=== PATIENT | male | born 1965 | race Caucasian/White ===

== ENCOUNTER 2017-03-30 20:17 | Emergency (ER) | payer OTHER ==
[2017-03-30 20:26] VITALS: BP 168/85; PULSE 61; RESP 16; TEMP 97.1
--- NOTE | 2017-03-30 20:49 | ED ---
General Adult HPI - General Chief complaint: Head Injury Stated complaint: Head Lac Time Seen by Provider: 03/30/17 20:48 Source: patient, family, RN notes reviewed Mode of arrival: ambulatory Limitations: no limitations - History of Present Illness Initial comments: Patient's a 52-year-old male who presents emergency room today with a chief complaint of laceration top of his head. He doesn't that he was using a pry bar above his head did give way and hit the side causing laceration. Patient states tetanus is up-to-date. Patient denies any loss consciousness. He denies any other complaints associated symptoms. Patient denies any recent fever , chills, shortness of breath, chest pain, back pain, abdominal pain, nausea or vomiting, numbness or tingling, dysuria or hematuria, constipation or diarrhea, headaches or visual changes, or any other complaints. - Related Data Allergies Allergy/AdvReac Type Severity Reaction Status Date / Time No Known Allergies Allergy Verified 03/30/17 20:23 Review of Systems ROS Statement: Those systems with pertinent positive or pertinent negative responses have been documented in the HPI. ROS Other: All systems not noted in ROS Statement are negative. Past Medical History Past Medical History: No Reported History History of Any Multi-Drug Resistant Organisms: None Reported Past Surgical History: No Surgical Hx Reported Past Psychological History: No Psychological Hx Reported Smoking Status: Never smoker Past Alcohol Use History: None Reported Past Drug Use History: None Reported General Exam - General Exam Comments Initial Comments: General: The patient is awake and alert, in no distress, and does not appear acutely ill. Eye: Pupils are equal, round and reactive to light, extra-ocular movements are intact. No nystagmus. There is normal conjunctiva bilaterally. No signs of icterus. Ears, nose, mouth and throat: There are moist mucous membranes and no oral lesions. Neck: The neck is supple, there is no tenderness or JVD. Cardiovascular: There is a regular rate and rhythm. No murmur, rub or gallop is appreciated. Respiratory: Lungs are clear to auscultation, respirations are non-labored, breath sounds are equal. No wheezes, stridor, rales, or rhonchi. Musculoskeletal: Normal ROM, no tenderness. Strength 5/5. Sensation intact. Pulses equal bilaterally 2+. Neurological: A&O x 3. CN II-XII intact, There are no obvious motor or sensory deficits. Coordination appears grossly intact. Speech is normal. Skin: Patient does have a 1 cm linear laceration to the left side top of his head. No active bleeding. Psychiatric: Cooperative, appropriate mood & affect, normal judgment. Limitations: no limitations Course Vital Signs 03/30/17 20:23 Temperature 97.1 F L Pulse Rate 61 Respiratory 16 Rate Blood Pressure 168/85 O2 Sat by Pulse 98 Oximetry Procedures - Procedures Initial comment: 1 cm linear laceration to the left side topical side. The laceration was then cleansed with Betadine and irrigated with normal saline. The wound was inspected , and there was no evidence of injury to deep structures. No foreign body was noted in the wound. A total of 2 skin kristen were placed with good approximation. Disposition Clinical Impression: Scalp laceration Disposition: HOME SELF-CARE Condition: Good Instructions: Concussion (ED) Additional Instructions: Please return to emergency room in 10 days to have sutures removed. Please return for any other concerns as discussed. Referrals: None,Stated [Primary Care Provider] - 1-2 days Time of Disposition: 20:49
== END 2017-03-30 21:12 | disposition home or self-care (01) ==
LOC: EC 20:17
DX: S01.01XA Laceration without foreign body of scalp, initial encounter (principal); W22.8XXA Striking against or struck by other objects, initial encounter; Y93.89 Activity, other specified
CPT/HCPCS: 12001; 99283

== ENCOUNTER 2017-10-26 18:46 | Observation (INO) | payer OTHER ==
[2017-10-26] MEDS ORDERED: RX INFO: IV CONTRAST WAS GIVEN 1 EACH MISC MISCELLANE PRN (19:44)
[2017-10-26 19:52] LABS: Appearance,Urine Clear (Clear); Bilirubin,Urine Negative (Negative); Blood,Urine Negative (Negative); Color,Urine Light Yellow; Glucose,Urine (UA) Negative (Negative); Ketones,Urine 2+ (Negative); Leukocyte Esterase,Urine Negative (Negative); Nitrite,Urine Negative (Negative); PH, Urine 6.5 (5.0-8.0); Protein,Urine Negative (Negative); Specific Gravity,Urine 1.014 (1.001-1.035); Urobilinogen,Urine <2.0 mg/dL (<2.0)
--- NOTE | 2017-10-26 19:52 | ED ---
Abdominal Pain HPI - General Source: patient, RN notes reviewed Mode of arrival: ambulatory Limitations: no limitations <Joyce Ashford - Last Filed: 10/26/17 21:36> <Pratik Segura - Last Filed: 10/31/17 10:25> - General Chief Complaint: Abdominal Pain Stated Complaint: abd pain Time Seen by Provider: 10/26/17 19:22 - History of Present Illness Initial Comments: This is a 52-year-old male who presents to the emergency department with chief complaint of abdominal pain. Patient is a poor historian and is unable to completely describe his abdominal pain. He states that it started 24 hours ago. He states that the pain feels like "when you are really hungry" and that his stomach is twisted in a knot. He states that the pain subsides mildly after he has a bowel movement or urinates. When asked to point to the location of pain, he points superior to umbilicus. He denies nausea or vomiting, diarrhea or constipation. He does admit to associated chills. He states that he started a new diet on September 18 that consists of high uric acid and high protein. He has been eating lean meat, turkey burgers, spinach and broccoli. He states he has had 2-3 episodes of this abdominal pain since starting the new diet but that they have only lasted for about one hour. Currently rates his pain as 8/10. (Joyce Ashford) - Related Data Home Medications Medication Instructions Recorded Confirmed Naproxen Sodium [Aleve] 440 mg PO BID PRN 10/26/17 10/26/17 Previous Rx's Medication Instructions Recorded Acetaminophen Tab [Tylenol] 650 mg PO Q6HR PRN tab 10/29/17 Docusate [Colace] 100 mg PO BID cap 10/29/17 HYDROcodone/APAP 5-325MG [[place] 1 each PO Q3H PRN #15 tab 10/29/17 5-325] Levofloxacin [Levaquin] 500 mg PO DAILY #7 tab 10/29/17 Allergies Allergy/AdvReac Type Severity Reaction Status Date / Time egg Allergy Anaphylaxis Verified 10/26/17 19:51 Review of Systems ROS Other: All systems not noted in ROS Statement are negative. <Joyce Ashford - Last Filed: 10/26/17 21:36> ROS Other: All systems not noted in ROS Statement are negative. <Pratik Segura - Last Filed: 10/31/17 10:25> ROS Statement: Those systems with pertinent positive or pertinent negative responses have been documented in the HPI. Past Medical History Past Medical History: No Reported History History of Any Multi-Drug Resistant Organisms: None Reported Past Surgical History: No Surgical Hx Reported Past Psychological History: No Psychological Hx Reported Smoking Status: Never smoker Past Alcohol Use History: None Reported Past Drug Use History: None Reported <Joyce Ashford - Last Filed: 10/26/17 21:36> - Past Family History Father Family Medical History: No Reported History Mother Family Medical History: No Reported History <Pratik Segura - Last Filed: 10/31/17 10:25> General Exam Limitations: no limitations <MakedaSahilJoyce Jose - Last Filed: 10/26/17 21:36> <Pratik Segura - Last Filed: 10/31/17 10:25> - General Exam Comments Initial Comments: General: Awake and alert, well-developed; in no apparent distress. is at bedside. HEENT: Head atraumatic, normocephalic. Pupils are equal, round and reactive to light. Extraocular movements intact. Oropharynx moist without erythema or exudate. Neck: Supple. Normal ROM. Cardiovascular: Regular rate and rhythm. No murmurs, rubs or gallops. Chest symmetrical. Respiratory: Lungs clear to auscultation bilaterally. No wheezes, rales or rhonchi. Normal respiratory effort with no use of accessory muscles. Abdomen: Soft, non-distended. Generalized tenderness on palpation of all 4 quadrants. No rigidity, rebound or guarding. Normal bowel sounds in all 4 quadrants. Musculoskeletal: Normal ROM, no tenderness bilateral upper and lower extremities. Skin: [place], warm and dry without rashes or lesions. Neurological: Alert and oriented x3. CN II-XII grossly intact. Speech is fluent and answers are appropriate. No focal neuro deficits. Psychiatric: Normal mood and affect. No overt signs of depression or anxiety noted. Poor historian. (Joyce Ashford) Vital Signs 10/26/17 10/26/17 19:00 22:22 Temperature 98.9 F 100.3 F H Pulse Rate 72 89 Respiratory 18 16 Rate Blood Pressure 158/80 133/70 O2 Sat by Pulse 99 Oximetry Medical Decision Making - Lab Data Result diagrams: 10/26/17 20:00 10/26/17 20:00 <Joyce Ashford - Last Filed: 10/26/17 21:36> - Lab Data Result diagrams: 10/28/17 06:35 10/26/17 20:00 <Pratik Segura - Last Filed: 10/31/17 10:25> - Medical Decision Making 52-year-old male who presents to the emergency department chief complaint of generalized abdominal pain. Patient did have a white count 13.2 with a left shift at 11.2. I received a phone call from Dr. Rivas, radiologist with diagnosis of acute appendicitis. I discussed this case with attending physician , Dr. Segura who was in contact with Dr. Vinson. Patient will be admitted to him. He will be made clear liquids with nothing by mouth diet after midnight. Pain medication and broad-spectrum antibiotics. Patient was made aware of findings and plan. He is in agreement for admission. All questions answered. (Joyce Ashford) I saw this patient in conjunction with the physician assistant plant control operator. I performed independent history and physical exam. Agree with case management. Case discussed with Dr. Vinson, who will admit. (Pratik Segura) - Lab Data Lab Results 10/26/17 10/26/17 10/26/17 Range/Units 19:41 20:00 20:00 WBC 13.2 H (3.8-10.6) k/uL RBC 4.75 (4.30-5.90) m/uL Hgb 14.2 (13.0-17.5) gm/dL Hct 42.1 (39.0-53.0) % MCV 88.6 (80.0-100.0) fL MCH 29.9 (25.0-35.0) pg MCHC 33.7 (31.0-37.0) g/dL RDW 12.6 (11.5-15.5) % Plt Count 155 (150-450) k/uL Neutrophils % 85 % Lymphocytes % 8 % Monocytes % 6 % Eosinophils % 1 % Basophils % 0 % Neutrophils # 11.2 H (1.3-7.7) k/uL Lymphocytes # 1.0 (1.0-4.8) k/uL Monocytes # 0.8 (0-1.0) k/uL Eosinophils # 0.1 (0-0.7) k/uL Basophils # 0.0 (0-0.2) k/uL Sodium 142 (137-145) mmol/L Potassium 4.1 (3.5-5.1) mmol/L Chloride 103 (98-107) mmol/L Carbon Dioxide 25 (22-30) mmol/L Anion Gap 14 mmol/L BUN 16 (9-20) mg/dL Creatinine 0.88 (0.66-1.25) mg/dL Est GFR (CKD-EPI)AfAm >90 (>60 ml/min/1.73 sqM) Est GFR (CKD-EPI)NonAf >90 (>60 ml/min/1.73 sqM) Glucose 81 (74-99) mg/dL Calcium 9.8 (8.4-10.2) mg/dL Total Bilirubin 0.8 (0.2-1.3) mg/dL AST 25 (17-59) U/L ALT 26 (21-72) U/L Alkaline Phosphatase 94 (38-126) U/L Total Protein 7.5 (6.3-8.2) g/dL Albumin 4.5 (3.5-5.0) g/dL Amylase 62 (30-110) U/L Lipase 105 (23-300) U/L Urine Color Light Yellow Urine Appearance Clear (Clear) Urine pH 6.5 (5.0-8.0) Ur Specific [place] 1.014 (1.001-1.035) Urine Protein Negative (Negative) Urine Glucose (UA) Negative (Negative) Urine Ketones 2+ H (Negative) Urine Blood Negative (Negative) Urine Nitrite Negative (Negative) Urine Bilirubin Negative (Negative) Urine Urobilinogen <2.0 (<2.0) mg/dL Ur Leukocyte Esterase Negative (Negative) Disposition Is patient prescribed a controlled substance at d/c from ED?: No Time of Disposition: 21:37 <Joyce Ashford - Last Filed: 10/26/17 21:36> <Pratik Segura - Last Filed: 10/31/17 10:25> Clinical Impression: Acute appendicitis Disposition: ADMITTED IP TO THIS HOSP Condition: Stable Addendum entered and electronically signed by Joyce Ashford PA-C 10/26/17 21: 38: Report was reviewed: CT abdomen and pelvis without contrast impression: Findings compatible with acute appendicitis without perforation or abscess formation at this time.
[2017-10-26 20:14] LABS: Basophils % (A) 0 %; Eosinophils # (A) 0.1 k/uL (0-0.7); Eosinophils % (A) 1 %; HCT 42.1 % (39.0-53.0); HGB 14.2 gm/dL (13.0-17.5); Lymphocytes % (A) 8 %; MCH 29.9 pg (25.0-35.0); MCHC 33.7 g/dL (31.0-37.0); MCV 88.6 fL (80.0-100.0); Mean Platelet Volume 8.6; Monocytes # (A) 0.8 k/uL (0-1.0); Monocytes % (A) 6 %; Neutrophils # (A) 11.2 k/uL (1.3-7.7); Neutrophils % (A) 85 %; Platelet Count 155 k/uL (150-450); RBC 4.75 m/uL (4.30-5.90); RDW 12.6 % (11.5-15.5); WBC 13.2 k/uL (3.8-10.6)
[2017-10-26 20:26] LABS: ALT 26 U/L (21-72); AST 25 U/L (17-59); Albumin 4.5 g/dL (3.5-5.0); Alkaline Phosphatase 94 U/L (38-126); Amylase 62 U/L (30-110); Anion Gap 14 mmol/L; Blood Urea Nitrogen 16 mg/dL (9-20); Calcium 9.8 mg/dL (8.4-10.2); Carbon Dioxide 25 mmol/L (22-30); Chloride 103 mmol/L (98-107); Glucose 81 mg/dL (74-99); Lipase 105 U/L (23-300); Potassium 4.1 mmol/L (3.5-5.1); Sodium 142 mmol/L (137-145); Total Bilirubin 0.8 mg/dL (0.2-1.3); Total Protein 7.5 g/dL (6.3-8.2)
--- NOTE | 2017-10-26 21:21 | CT ---
EXAMINATION TYPE: CT abdomen pelvis w con DATE OF EXAM: 10/26/2017 COMPARISON: NONE HISTORY: abdominal pain CT DLP: 1101 mGycm CONTRAST: CT scan of the abdomen and pelvis is performed without Oral Contrast and with IV Contrast, patient in jected with 100 mL of Isovue 300. FINDINGS: LUNG BASES-: No visible nodule. No infiltrate. LIVER/GB: No calcified gallstones. No space occupying hepatic lesion. Biliary tree is of normal ca liber. Small hepatic cysts noted. PANCREAS: No inflammation. No distinct mass. SPLEEN: No splenic enlargement. No lesion seen. ADRENALS: No nodule. No thickening. KIDNEYS/BLADDER: No hydronephrosis. No nephrolithiasis. Left renal simple appearing cysts. Urinary bladder grossly unremarkable. BOWEL: Dilatation of the appendix measuring up to 11 mm with surrounding inflammatory change and appe ndicolith. The findings are compatible with acute appendicitis without perforation or abscess no evid ence for free air. At this time. Normal bowel caliber. GENITAL ORGANS: No gross abnormality. LYMPH NODES: No greater than 1cm abdominal or pelvic lymph nodes are appreciated. AORTA: No significant abnormality. OSSEOUS STRUCTURES: No significant abnormality is seen. OTHER: No significant additional abnormality is seen. IMPRESSION: 1. Findings compatible with acute appendicitis without perforation or abscess formation at this time.
[2017-10-26] MEDS ORDERED: MORPHINE SULFATE 4MG/4ML SYRG IV PRN (21:31)
[2017-10-26] MEDS ORDERED: ONDANSETRON 4 MG/2 ML VIAL IVP PRN (21:31)
[2017-10-26] MEDS ORDERED: HYDROcodone/APAP 5-325MG 1 EACH TAB PO PRN (21:31)
[2017-10-26] MEDS ORDERED: MORPHINE SULFATE 4MG/4ML SYRG IV STA (21:31)
[2017-10-26] MEDS ORDERED: NALOXONE 0.4 MG/ML 1 ML VIAL IV PRN (21:31)
[2017-10-26] MEDS ORDERED: ACETAMINOPHEN TAB 325 MG TAB PO PRN (21:31)
[2017-10-26] MEDS: SODIUM CHLORIDE 0.9% 1,000 ML IV SCH (21:54)
[2017-10-26] MEDS ORDERED: HYDROcodone/APAP 5-325MG 1 EACH TAB ONE (23:30)
[2017-10-27] MEDS: PIPERACILLIN-TAZOBACTAM 3.375 GM in DEXTROSE/WATER 1 50ML.BAG IVPB SCH ×4 (08:30→23:36)
[2017-10-27] MEDS: SODIUM CHLORIDE 0.9% 1,000 ML IV SCH ×4 (09:01→18:07)
[2017-10-27] MEDS ORDERED: ACETAMINOPHEN IV (For NPO) 1,000 MG in EMPTY BAG 1 BAG IVPB ONE (09:14)
--- NOTE | 2017-10-27 09:25 | P.GSHP ---
<Kristen Rogel M - Last Filed: 10/27/17 09:16> History of Present Illness H&P Date: 10/27/17 Chief Complaint: Abdominal pain A 52-year-old presented to the emergency room with a chief complaint of developing right mid quadrant abdominal pains. Patient stated the symptoms started 24 hours prior. They continue to persist. Patient's points to the right mid upper quadrant abdominal region as to the reference point. Patient states if you push on it it hurts. He stated that if he had a bowel movement the pain was less. with movement the pain increased. Patient stated that he did feel like he had chills. Patient came into the emergency room to be seen for the above-mentioned symptoms. The white count on admission was 13.2. CAT scan of the abdomen pelvis compatible with acute appendicitis. Patient was admitted to the services of the attending. The temp this morning is 101 heart rate in the 90s labs are pending abdominal pain continues to persist No past surgical history No past medical history states have lower back discomfort uses [id number] Aleve does not take daily - Review of Systems Comment: Essentially unremarkable except as mentioned in the present illness Past Medical History Past Medical History: No Reported History History of Any Multi-Drug Resistant Organisms: None Reported Past Surgical History: No Surgical Hx Reported Past Psychological History: No Psychological Hx Reported Smoking Status: Never smoker Past Alcohol Use History: None Reported Past Drug Use History: None Reported Medications and Allergies Home Medications Medication Instructions Recorded Confirmed Type Naproxen Sodium [Aleve] 440 mg PO BID PRN 10/26/17 10/26/17 History Allergies Allergy/AdvReac Type Severity Reaction Status Date / Time egg Allergy Anaphylaxis Verified 10/26/17 19:51 Surgical - Exam Vital Signs Temp Pulse Resp BP Pulse Ox 98.9 F 72 18 158/80 99 10/26/17 19:00 10/26/17 19:00 10/26/17 19:00 10/26/17 19:00 10/26/17 19:00 GENERAL APPEARANCE: 52-year-old patient is alert, face flushed resting in bed VITAL SIGNS: Reviewed HEENT: Head is normocephalic and atraumatic. Pupils are equal and reactive. The nares are patent. Oropharynx is clear without lesions. NECK: Supple without lymphadenopathy. Traches midline. HEART: S1, S2. Regular rate and rhythm. Denying chest pain no murmur LUNGS: No crackles or wheezes are heard. Adequate air movement bilaterally ABDOMEN: Soft, mild tenderness right lower quadrant nondistended with good bowel sounds. No peritoneal signs. No palpable organomegaly or masses. Nondistended bowel tones present no nausea no vomiting urinating no difficulty no stool EXTREMITIES: Normal skin color and turgor. No cyanosis, rash, ulceration, clubbing or edema. Radial pedal pulses are 2/4 bilaterally. NEUROLOGICAL: No focal deficits. Strength and sensation are grossly intact. Results - Labs 10/26/17 20:00 10/26/17 20:00 Abnormal Lab Results - Last 24 Hours (Table) 10/26/17 10/26/17 Range/Units 19:41 20:00 WBC 13.2 H (3.8-10.6) k/uL Neutrophils # 11.2 H (1.3-7.7) k/uL Urine Ketones 2+ H (Negative) Microbiology - Last 24 Hours (Table) 10/26/17 19:41 Urine Culture - Preliminary Urine,Voided Diabetes panel 10/26/17 Range/Units 20:00 Sodium 142 (137-145) mmol/L Potassium 4.1 (3.5-5.1) mmol/L Chloride 103 (98-107) mmol/L Carbon Dioxide 25 (22-30) mmol/L BUN 16 (9-20) mg/dL Creatinine 0.88 (0.66-1.25) mg/dL Glucose 81 (74-99) mg/dL Calcium 9.8 (8.4-10.2) mg/dL AST 25 (17-59) U/L ALT 26 (21-72) U/L Alkaline Phosphatase 94 (38-126) U/L Total Protein 7.5 (6.3-8.2) g/dL Albumin 4.5 (3.5-5.0) g/dL Calcium panel 10/26/17 Range/Units 20:00 Calcium 9.8 (8.4-10.2) mg/dL Albumin 4.5 (3.5-5.0) g/dL Pituitary panel 10/26/17 Range/Units 20:00 Sodium 142 (137-145) mmol/L Potassium 4.1 (3.5-5.1) mmol/L Chloride 103 (98-107) mmol/L Carbon Dioxide 25 (22-30) mmol/L BUN 16 (9-20) mg/dL Creatinine 0.88 (0.66-1.25) mg/dL Glucose 81 (74-99) mg/dL Calcium 9.8 (8.4-10.2) mg/dL Adrenal panel 10/26/17 Range/Units 20:00 Sodium 142 (137-145) mmol/L Potassium 4.1 (3.5-5.1) mmol/L Chloride 103 (98-107) mmol/L Carbon Dioxide 25 (22-30) mmol/L BUN 16 (9-20) mg/dL Creatinine 0.88 (0.66-1.25) mg/dL Glucose 81 (74-99) mg/dL Calcium 9.8 (8.4-10.2) mg/dL Total Bilirubin 0.8 (0.2-1.3) mg/dL AST 25 (17-59) U/L ALT 26 (21-72) U/L Alkaline Phosphatase 94 (38-126) U/L Total Protein 7.5 (6.3-8.2) g/dL Albumin 4.5 (3.5-5.0) g/dL Assessment and Plan Assessment: Impression Present on admission right upper quadrant abdominal pain suspect due to acute appendicitis CAT scan abdomen and pelvis compatible with acute appendicitis Leukocytosis present on admission likely reactive Febrile likely due to acute appendicitis Sinus tachycardia likely due to acute appendicitis reactive pain Plan IV Zosyn as ordered Pain control Nothing by mouth for planned surgical procedure laparoscopic appendectomy today DVT and GI prophylaxis Plan of care discussed with and patient at bedside questions answered 1 dose of IV Tylenol now The above impression and plan of care have been discussed and directed by signing physician. Kristen Rogel nurse practitioner acting as scribe for signing physician. <Tolu Vinson - Last Filed: 10/27/17 13:48> Surgical - Exam Vital Signs Temp Pulse Resp BP Pulse Ox 98.9 F 72 18 158/80 99 10/26/17 19:00 10/26/17 19:00 10/26/17 19:00 10/26/17 19:00 10/26/17 19:00 Results - Labs 10/26/17 20:00 10/26/17 20:00 Abnormal Lab Results - Last 24 Hours (Table) 10/26/17 10/26/17 Range/Units 19:41 20:00 WBC 13.2 H (3.8-10.6) k/uL Neutrophils # 11.2 H (1.3-7.7) k/uL Urine Ketones 2+ H (Negative) Microbiology - Last 24 Hours (Table) 10/26/17 19:41 Urine Culture - Preliminary Urine,Voided Diabetes panel 10/26/17 Range/Units 20:00 Sodium 142 (137-145) mmol/L Potassium 4.1 (3.5-5.1) mmol/L Chloride 103 (98-107) mmol/L Carbon Dioxide 25 (22-30) mmol/L BUN 16 (9-20) mg/dL Creatinine 0.88 (0.66-1.25) mg/dL Glucose 81 (74-99) mg/dL Calcium 9.8 (8.4-10.2) mg/dL AST 25 (17-59) U/L ALT 26 (21-72) U/L Alkaline Phosphatase 94 (38-126) U/L Total Protein 7.5 (6.3-8.2) g/dL Albumin 4.5 (3.5-5.0) g/dL Calcium panel 10/26/17 Range/Units 20:00 Calcium 9.8 (8.4-10.2) mg/dL Albumin 4.5 (3.5-5.0) g/dL Pituitary panel 10/26/17 Range/Units 20:00 Sodium 142 (137-145) mmol/L Potassium 4.1 (3.5-5.1) mmol/L Chloride 103 (98-107) mmol/L Carbon Dioxide 25 (22-30) mmol/L BUN 16 (9-20) mg/dL Creatinine 0.88 (0.66-1.25) mg/dL Glucose 81 (74-99) mg/dL Calcium 9.8 (8.4-10.2) mg/dL Adrenal panel 10/26/17 Range/Units 20:00 Sodium 142 (137-145) mmol/L Potassium 4.1 (3.5-5.1) mmol/L Chloride 103 (98-107) mmol/L Carbon Dioxide 25 (22-30) mmol/L BUN 16 (9-20) mg/dL Creatinine 0.88 (0.66-1.25) mg/dL Glucose 81 (74-99) mg/dL Calcium 9.8 (8.4-10.2) mg/dL Total Bilirubin 0.8 (0.2-1.3) mg/dL AST 25 (17-59) U/L ALT 26 (21-72) U/L Alkaline Phosphatase 94 (38-126) U/L Total Protein 7.5 (6.3-8.2) g/dL Albumin 4.5 (3.5-5.0) g/dL
[2017-10-27] MEDS: MORPHINE SULFATE 4MG/4ML SYRG IV PRN ×2 (11:23→16:38)
[2017-10-27] MEDS ORDERED: IV FLUID CONTINUATION 1,000 ML IV ONE (12:52)
[2017-10-27] MEDS ORDERED: ROCURONIUM BROMIDE 10 MG/ML 10 ML VIAL IV ONE (14:18)
[2017-10-27] MEDS ORDERED: NEOSTIGMINE 1 MG/ML 10 ML VIAL ONE (14:18)
[2017-10-27] MEDS ORDERED: ETOMIDATE 2 MG/ML 10 ML VIAL ONE (14:18)
[2017-10-27] MEDS ORDERED: LIDOCAINE 1% INJ 10MG/ML (20 ML MDV) ONE (14:18)
[2017-10-27] MEDS ORDERED: MIDAZOLAM 2 MG/2 ML VIAL ONE (14:18)
[2017-10-27] MEDS ORDERED: GLYCOPYRROLATE 0.2 MG/ML 2 ML VIAL ONE (14:18)
[2017-10-27] MEDS ORDERED: fentaNYL (PF) 50 MCG/ML 2 ML AMP ONE (14:18)
[2017-10-27] MEDS ORDERED: SUCCINYLCHOLINE CHLORIDE 100 MG/5 ML SYR IV ONE (14:18)
[2017-10-27] MEDS ORDERED: LACTATED RINGERS 1,000 ML IV ONE ×2 (14:30→15:02)
[2017-10-27] MEDS ORDERED: BUPIVACAINE (PF) 0.25% 30 ML VIAL SQ ONE (14:35)
[2017-10-27] MEDS ORDERED: NALOXONE 0.4 MG/ML 1 ML VIAL IV PRN (15:02)
[2017-10-27] MEDS ORDERED: HYDROcodone/APAP 5-325MG 1 EACH TAB PO PRN (15:02)
[2017-10-27] MEDS ORDERED: traMADol 50 MG TAB PO PRN (15:02)
[2017-10-27] MEDS ORDERED: Acetaminophen-Codeine 300-30mg TAB PO PRN (15:02)
[2017-10-27] MEDS ORDERED: METOCLOPRAMIDE 5 MG/ML 2 ML VIAL IVP PRN (15:02)
[2017-10-27] MEDS ORDERED: MORPHINE SULFATE 4MG/4ML SYRG IVP ONE (15:24)
[2017-10-27] MEDS: KETOROLAC 30 MG/ML 1 ML VIAL IVP SCH ×2 (18:01→21:30)
[2017-10-27] MEDS: DOCUSATE 100 MG CAP PO SCH (21:34)
[2017-10-28] MEDS: SODIUM CHLORIDE 0.9% 1,000 ML IV SCH ×4 (03:15→21:47)
[2017-10-28] MEDS: KETOROLAC 30 MG/ML 1 ML VIAL IVP SCH ×4 (04:33→21:45)
[2017-10-28 07:14] LABS: Basophils % (A) 0 %; Eosinophils % (A) 0 %; HCT 37.7 % (39.0-53.0); HGB 12.8 gm/dL (13.0-17.5); Lymphocytes # (A) 0.8 k/uL (1.0-4.8); Lymphocytes % (A) 9 %; MCH 30.6 pg (25.0-35.0); MCV 90.2 fL (80.0-100.0); Mean Platelet Volume 8.3; Monocytes # (A) 0.4 k/uL (0-1.0); Monocytes % (A) 4 %; Neutrophils # (A) 7.4 k/uL (1.3-7.7); Neutrophils % (A) 85 %; Platelet Count 144 k/uL (150-450); RBC 4.18 m/uL (4.30-5.90); RDW 12.6 % (11.5-15.5); WBC 8.7 k/uL (3.8-10.6)
[2017-10-28] MEDS: PIPERACILLIN-TAZOBACTAM 3.375 GM in DEXTROSE/WATER 1 50ML.BAG IVPB SCH ×2 (08:59→16:45)
[2017-10-28] MEDS: ENOXAPARIN 40 MG/0.4 ML SYRINGE SQ SCH (09:00)
[2017-10-28] MEDS: PANTOPRAZOLE 40 MG/10 ML VIAL IV SCH (09:00)
[2017-10-28] MEDS: DOCUSATE 100 MG CAP PO SCH ×2 (09:01→21:47)
--- NOTE | 2017-10-28 10:02 | P.PN ---
Subjective Progress Note Date: 10/28/17 52-year-old male seen this morning at bedside reports having surgical discomfort. Described as a tenderness Surgical incision sites dry. Abdomen soft nondistended. Tolerated the diet. States urinating no difficulty. No stool is not passing gas labs this morning the white count 8.7 down from 13.2 at midnight 99.5 Postop October 27 laparoscopic appendectomy for acute appendicitis Objective - Vital Signs Vital signs: Vital Signs Temp 99 F 10/28/17 06:53 Pulse 88 10/28/17 06:53 Resp 14 10/28/17 06:53 BP 115/77 10/28/17 06:53 Pulse Ox 94 L 10/28/17 06:53 Intake & Output 10/27/17 10/28/17 10/28/17 18:59 06:59 18:59 Intake Total 850 575 380 Output Total 5 675 Balance 845 -100 380 Weight 78.018 kg Intake: IV 850 Intake, IV Titration 575 Amount Piperacillin-Tazobactam 3 50 .375 gm In Dextrose/Water 1 50ml.bag @ 12.5 mls/hr IVPB Q8HR KRISTYN Rx#: [id number] Sodium Chloride 0.9% 1, 525 000 ml @ 150 mls/hr IV . Q6H40M KRISTYN Rx#:[id number] Oral 380 Output: Urine 675 Estimated Blood Loss 5 - Exam Physical exam 52-year-old male sitting up on the edge of the bed appears in no acute distress Lungs posterior slightly diminished at the bases. Needs coaching to use I-S can achieve thousand no cough noted no conversational shortness of breath on room air sats are greater than 95% Heart S1-S2 audible and regular Abdomen surgical incision site dressings dry soft nondistended nontender PRESENT urinating no difficulty tolerating diet extremities no edema - Labs CBC & Chem 7: 10/28/17 06:35 10/26/17 20:00 Labs: Abnormal Lab Results - Last 24 Hours (Table) 10/28/17 Range/Units 06:35 RBC 4.18 L (4.30-5.90) m/uL Hgb 12.8 L (13.0-17.5) gm/dL Hct 37.7 L (39.0-53.0) % Plt Count 144 L (150-450) k/uL Lymphocytes # 0.8 L (1.0-4.8) k/uL Microbiology - Last 24 Hours (Table) 10/26/17 19:41 Urine Culture - Final Urine,Voided Assessment and Plan Assessment: Impression Present on admission right upper quadrant abdominal pain suspect due to acute appendicitis CAT scan abdomen and pelvis compatible with acute appendicitis Leukocytosis present on admission likely reactive Febrile likely due to acute appendicitis Sinus tachycardia likely due to acute appendicitis reactive pain improved resolved Status post laparoscopic appendectomy for acute appendicitis 27 of October Plan Increase activity Continue postop surgical care Prepped for discharge within the next 24 hours At the time of discharge Levaquin 500 daily for 7 days Pain control Encourage the use of the incentive spirometer IV Zosyn as ordered Check a CBC in the morning DVT and GI prophylaxis The above impression and plan of care have been discussed and directed by signing physician. Kristen Rogel nurse practitioner acting as scribe for signing physician.
[2017-10-28] MEDS: HYDROcodone/APAP 5-325MG 1 EACH TAB PO PRN ×4 (11:28→21:46)
--- NOTE | 2017-10-28 11:58 | P.OP ---
Date of Procedure: 10/27/17 Preoperative Diagnosis: Acute appendicitis Postoperative Diagnosis: Acute appendicitis Procedure(s) Performed: Laparoscopic appendectomy Anesthesia: AYLEEN Surgeon: Tolu Vinson Pathology: other (Appendix) Condition: stable Disposition: PACU Description of Procedure: The patient's placed on the operating table in the supine position. The patient received general anesthesia. The abdomen was prepped and draped in the usual sterile fashion. The skin was anesthetized 1% local Xylocaine at the trocar sites. Using an 11 blade the skin was incised at the umbilicus. The umbilicus was grasped with a [place] clamp and then a Veress needle was placed into the peritoneal cavity. Position of the Veress needle was confirmed with positive drop test. After adequate insufflation a 5 mm trocar was placed into the peritoneal cavity. The abdomen was further insufflated. And then the laparoscope was placed in the peritoneal cavity. Next a 5 mm trocar was placed in the midline suprapubic position. And then a 10 mm trocar was placed in the midline epigastric position. The patient was rotated with the right side up and in Trendelenburg. The appendix was visualized. The appendix appeared to be inflamed. The appendix was grasped and then using the Harmonic scissors the mesoappendix was divided. A PDS Endoloop was then placed around the base of the appendix. And then the appendix was divided using Harmonic scissors. The appendix was placed into an Endo Catch and brought out through the 10 mm trocar site. The abdomen was irrigated. There is no bleeding seen. The trochars withdrawn. The skin was closed interrupted 3-0 Monocryl suture. Dermabond dressing was applied. Patient was sent to recovery room in stable condition.
[2017-10-28] MEDS ORDERED: MORPHINE ORAL SOLN 10 MG/5 ML CUP PO PRN (12:53)
[2017-10-29] MEDS: PIPERACILLIN-TAZOBACTAM 3.375 GM in DEXTROSE/WATER 1 50ML.BAG IVPB SCH ×2 (01:15→07:25)
[2017-10-29] MEDS: KETOROLAC 30 MG/ML 1 ML VIAL IVP SCH ×2 (04:18→09:25)
[2017-10-29 07:23] VITALS: BP 151/83; PULSE 80; RESP 14; TEMP 98
[2017-10-29] MEDS: HYDROcodone/APAP 5-325MG 1 EACH TAB PO PRN (07:32)
[2017-10-29] MEDS: DOCUSATE 100 MG CAP PO SCH (09:25)
[2017-10-29] MEDS: PANTOPRAZOLE 40 MG/10 ML VIAL IV SCH (09:27)
[2017-10-29] MEDS: ENOXAPARIN 40 MG/0.4 ML SYRINGE SQ SCH (09:27)
--- NOTE | 2017-10-29 09:33 | P.DS ---
Providers Date of admission: 10/26/17 21:33 Expected date of discharge: 10/29/17 Attending physician: Tolu Vinson Primary care physician: Stated None Hospital Course: 52-year-old male presented on the day of admission to the emergency room with a chief complaint of developing right mid quadrant abdominal pain onset 24 hours prior. The white count on admission 13.2. CAT scan of the abdomen pelvis obtained in the emergency room compatible with acute appendicitis. Patient was admitted to the services of the attending. On October 28 patient underwent laparoscopic appendectomy for acute appendicitis the white count down to 8.7 on October 28. On admission the white count was 13.2. Afebrile temp 98. Patient had been up ambulatory on the unit passing gas pain medication was effective for pain control surgical incision sites dry. Tolerating a diet with no nausea no vomiting Patient was felt to be appropriate to be discharged home Impression Present on admission right upper quadrant abdominal pain suspect due to acute appendicitis CAT scan abdomen and pelvis compatible with acute appendicitis Leukocytosis present on admission likely reactive resolved Febrile likely due to acute appendicitis resolved Sinus tachycardia likely due to acute appendicitis reactive pain improved resolved Status post laparoscopic appendectomy for acute appendicitis 27 of October The above impression and plan of care have been discussed and directed by signing physician. Kristen Rogel nurse practitioner acting as scribe for signing physician. Patient Condition at Discharge: Stable Plan - Discharge Summary New Discharge Prescriptions: New Acetaminophen Tab [Tylenol] 650 mg PO Q6HR PRN tab PRN Reason: Mild Pain Or Fever > 100.5 HYDROcodone/APAP 5-325MG [Waldo 5-325] 1 each PO Q3H PRN #15 tab PRN Reason: Moderate Pain Docusate [Colace] 100 mg PO BID cap Levofloxacin [Levaquin] 500 mg PO DAILY #7 tab Continue Naproxen Sodium [Aleve] 440 mg PO BID PRN PRN Reason: Pain Discharge Medication List Naproxen Sodium [Aleve] 440 mg PO BID PRN 10/26/17 [History] Acetaminophen Tab [Tylenol] 650 mg PO Q6HR PRN tab 10/29/17 [Rx] Docusate [Colace] 100 mg PO BID cap 10/29/17 [Rx] HYDROcodone/APAP 5-325MG [Waldo 5-325] 1 each PO Q3H PRN #15 tab 10/29/17 [Rx] Levofloxacin [Levaquin] 500 mg PO DAILY #7 tab 10/29/17 [Rx] Follow up Appointment(s)/Referral(s): None,Stated [Primary Care Provider] - 1-2 days Tolu Vinson MD [STAFF PHYSICIAN] - 11/04/17 2:30 pm Patient Instructions/Handouts: Appendicitis (GEN), Laparoscopic Appendectomy ( DC) Activity/Diet/Wound Care/Special Instructions: No tub bath for six weeks. Shower daily. No lifting over 10 pounds for the next 6 weeks. Avoid constipation use [id number] stool softeners as needed Do not remove the plastic dressings at surgical site. May use ice packs to surgical site. No driving while taking narcotic for pain. Discharge Disposition: HOME SELF-CARE
== END 2017-10-29 10:15 | disposition home or self-care (01) ==
LOC: EC 18:46 → 3SUR 21:33
PROVIDERS: ADMIT Surgery; ATTEND Surgery
DX: K35.2 Acute appendicitis with generalized peritonitis (principal); R00.0 Tachycardia, unspecified; Z79.899 Other long term (current) drug therapy; Z91.012 Allergy to eggs
CPT/HCPCS: 44970; 99285 ×2; 96374 ×2; 96376; 96375; 36415; 88304; 80053; 82150; 83690; 85025 ×2; 81003; 87086; 74177; G0378 ×4; J2250; J2710; J2405; J2001; J3010; J1885 ×3; J2543 ×3; J0131; J0330; C9113; Q9967; J2270 ×2

== ENCOUNTER 2020-02-16 10:58 | Emergency (ER) | payer OTHER ==
[2020-02-16 11:03] VITALS: BP 144/86; PULSE 69; RESP 17; TEMP 98.1
[2020-02-16] MEDS ORDERED: LIDOCAINE 1% INJ 10MG/ML (20 ML MDV) SQ ONE (11:07)
--- NOTE | 2020-02-16 11:10 | ED ---
Wound/Laceration HPI - General Chief Complaint: Wound/Laceration Stated Complaint: lt hand lac Time Seen by Provider: 02/16/20 11:05 Source: patient, RN notes reviewed Mode of arrival: ambulatory Limitations: no limitations - History of Present Illness Initial Comments: 54-year-old male presents emergency Department chief complaint of left hand puncture wound. Patient states that he was trying to open a licea fob with a knife when it slipped causing the tip of the night punctures hand. His tetanus is up-to-date 6 months ago. Patient states he has full range of motion no paresthesias. Patient states is no active bleeding. Patient offers no complaints. - Related Data Home Medications Medication Instructions Recorded Confirmed Naproxen Sodium [Aleve] 440 mg PO BID PRN 10/26/17 10/26/17 Previous Rx's Medication Instructions Recorded Acetaminophen Tab [Tylenol] 650 mg PO Q6HR PRN tab 10/29/17 Docusate [Colace] 100 mg PO BID cap 10/29/17 HYDROcodone/APAP 5-325MG [Marion 1 each PO Q3H PRN #15 tab 10/29/17 5-325] Levofloxacin [Levaquin] 500 mg PO DAILY #7 tab 10/29/17 Allergies Allergy/AdvReac Type Severity Reaction Status Date / Time egg Allergy Anaphylaxis Verified 10/26/17 19:51 Review of Systems ROS Statement: Those systems with pertinent positive or pertinent negative responses have been documented in the HPI. ROS Other: All systems not noted in ROS Statement are negative. Past Medical History Past Medical History: No Reported History History of Any Multi-Drug Resistant Organisms: None Reported Past Surgical History: Appendectomy Past Psychological History: No Psychological Hx Reported Smoking Status: Never smoker Past Alcohol Use History: None Reported Past Drug Use History: None Reported - Past Family History Father Family Medical History: No Reported History Mother Family Medical History: No Reported History General Exam Limitations: no limitations General appearance: alert, in no apparent distress Head exam: Present: atraumatic, normocephalic, normal inspection Neck exam: Present: normal inspection, full ROM. Absent: tenderness, meningismus, lymphadenopathy Respiratory exam: Present: normal lung sounds bilaterally. Absent: respiratory distress, wheezes, rales, rhonchi, stridor Cardiovascular Exam: Present: regular rate, normal rhythm, normal heart sounds. Absent: systolic murmur, diastolic murmur, rubs, gallop, clicks Extremities exam: Present: other (Left hand palmar aspect there is a 2cm laceration to the thenar eminence neurovascular intact full strength of all digits) Course Vital Signs 02/16/20 11:01 Temperature 98.1 F Pulse Rate 69 Respiratory 17 Rate Blood Pressure 144/86 O2 Sat by Pulse 98 Oximetry Procedures - Laceration Laceration #1 Consent Obtained: verbal consent Indication: laceration Site: hand (left) Size (cm): 2 Description: irregular Depth: simple, single layer Anesthetic Used: lidocaine 1%, without epi Anesthesia Technique: local infiltration Amount (mls): 5 Pre-repair: wound explored, irrigated extensively, deep structures intact Type of Sutures: nylon Size of Sutures: 4-0 Number of Sutures: 4 Technique: simple, interrupted Patient Tolerated Procedure: well, no complications Medical Decision Making - Medical Decision Making 54-year-old presented for hand laceration this was closed, thoroughly cleaned no signs of tendon injury he is instructed to keep the wound clean and dry and is to follow-up for recheck within 48 hours. Disposition Clinical Impression: Laceration of left hand Disposition: HOME SELF-CARE Condition: Stable Instructions (If sedation given, give patient instructions): Care For Your Stitches (ED), Laceration (ED) Additional Instructions: Have sutures removed in 10 days.Please return to the Emergency Department if symptoms worsen or any other concerns. Is patient prescribed a controlled substance at d/c from ED?: No Referrals: None,Stated [Primary Care Provider] - 1-2 days Time of Disposition: 11:10
== END 2020-02-16 11:48 | disposition home or self-care (01) ==
LOC: EC 10:58
DX: S61.412A Laceration without foreign body of left hand, initial encounter (principal); Z91.012 Allergy to eggs; W26.0XXA Contact with knife, initial encounter; Y93.89 Activity, other specified
CPT/HCPCS: 12001; 99282; J2001